=== PATIENT | male | born 1995 | race Caucasian/White ===

== ENCOUNTER 2018-06-17 23:59 | Emergency (ER) | payer SELFPAY ==
[~2018-06-17] VITALS: Ht 188 cm; Wt 108.9 kg
[2018-06-18 00:10] VITALS: BP 168/76
[2018-06-18] MEDS ORDERED: POLY17PO29 PO (02:11)
[2018-06-18] MEDS ORDERED: HYDR30CR61 TP (02:11)
--- NOTE | 2018-06-18 02:11 | PHYS DOC ---
Past Medical History Past Medical History: Other Additional Past Medical Histor: HEMEROIDS Past Surgical History: No Surgical History Alcohol Use: Occasionally Drug Use: None Adult General Chief Complaint Chief Complaint: HEMORRHOIDS HPI HPI Patient is a 22-year-old male who presents with complaint of hemorrhoids causing rectal pain. Patient states that hemorrhoids of been present for the last couple of days. He also indicates that he has been constipated for the last several days and unable to have a bowel movement. He states that he is getting some cramping associated with when he tries to bear down to have a bowel movement. He denies any nausea or vomiting. He also denies any fever. He states that he has not yet taken anything to try to have a bowel movement. I Review of Systems Review of Systems Constitutional: Denies fever or chills [] Respiratory: Denies cough or shortness of breath [] Cardiovascular: No additional information not addressed in HPI [] GI: Complains of abdominal cramping and constipation. Denies nausea, vomiting or diarrhea.[] Musculoskeletal: Denies back pain or joint pain [] All other systems were reviewed and found to be within normal limits, except as documented in this note. Current Medications Current Medications Current Medications Medications (Trade) Dose Ordered Sig/Trent Start Time Stop Time Status Last Admin Dose Admin Hydrocortisone (Proctosol-Hc) 1 kapil 1X ONCE 06/18/18 02:30 06/18/18 02:31 Magnesium Citrate (Citroma) 296 ml 1X ONCE 06/18/18 02:30 06/18/18 02:31 Allergies Allergies Allergies Coded Allergies Type Severity Reaction Last Updated Verified No Known Drug Allergies 12/16/15 No Physical Exam Physical Exam Constitutional: Well developed, well nourished, no acute distress, non-toxic appearance. [] HENT: Normocephalic, atraumatic, bilateral external ears normal, oropharynx moist, no oral exudates, nose normal. [] Eyes: PERRLA, EOMI, conjunctiva normal, no discharge. [] Neck: Normal range of motion, no tenderness, supple, no stridor. [] Cardiovascular:Heart rate regular rhythm [] Lungs & Thorax: Bilateral breath sounds clear to auscultation [] Abdomen: Bowel sounds normal, soft, no tenderness. Rectal exam demonstrates external thrombosed hemorrhoid. [] Skin: Warm, dry, no erythema, no rash. [] Extremities: No tenderness, no cyanosis, no clubbing, ROM intact, no edema. [] Neurologic: Alert and oriented X 3, normal motor function, normal sensory function, no focal deficits noted. [] Current Patient Data Vital Signs Vital Signs Date Time Temp Pulse Resp B/P (MAP) Pulse Ox O2 Delivery O2 Flow Rate FiO2 06/18/18 00:10 98.2 113 20 168/76 (106) 98 Room Air 98.2 EKG EKG [] Radiology/Procedures Radiology/Procedures [] Impressions: Abdominal series demonstrates some fecal retention. Otherwise x-ray is unremarkable. Course & Med Decision Making Course & Med Decision Making Pertinent Labs and Imaging studies reviewed. (See chart for details) [] Dragon Disclaimer Dragon Disclaimer This electronic medical record was generated, in whole or in part, using a voice recognition dictation system. Departure Departure Impression: Primary Impression: Constipation Additional Impression: External hemorrhoid Disposition: HOME, SELF-CARE Condition: STABLE Referrals: NO PCP (PCP) Patient Instructions: Constipation, Adult, Hemorrhoids Scripts Hydrocortisone (ANUSOL-HC) 30 Gm Cream..g. 1 KAPIL TP BID PRN for rectal pain, #30 GM Prov: DOROTHY CERRATO Jr. DO 06/18/18 Polyethylene Glycol 3350 (MIRALAX) 17 Gm Powd.pack 1 PKT PO DAILY, #10 PKT Prov: DOROTHY CERRATO Jr. DO 06/18/18 Problem Qualifiers Primary Impression: Constipation Constipation type: unspecified constipation type Qualified Codes: K59.00 - Constipation, unspecified DOROTHY CERRATO Jr. DO Jun 18, 2018 02:11
[2018-06-18] MEDS ORDERED: HYDROCORTISONE 2.5% RECTAL CREAM 30GM TUBE. RC ONE (02:30)
[2018-06-18] MEDS ORDERED: MAGNESIUM CITRATE 296 ML SOLUTION. PO ONE (02:30)
--- NOTE | 2018-06-18 07:49 | RAD ---
Examination: ABDOMEN SUPINE UPRIGHT History: constipation Comparison/Correlation: None Findings: Supine and upright views of the abdomen were obtained. Visualized lung bases are clear. Moderate quantity of stool in the proximal colon is present. No suspicious abdominal calcification. No extraluminal gas. Bony structures are intact. Impression: No obstruction. Electronically signed by: Miguel Angel Harvey MD (06/18/2018 7:45 AM) [facility]
== END 2018-06-18 02:20 | disposition home or self-care (01) ==
LOC: ER 23:59
DX: K64.5 Perianal venous thrombosis (principal); K59.00 Constipation, unspecified
CPT/HCPCS: 74021; 99284

== ENCOUNTER 2019-10-10 09:33 | Emergency (ER) | payer SELFPAY ==
[~2019-10-10] VITALS: Ht 188 cm; Wt 103.4 kg
[~2019-10-10 09:33] MED LIST: HYDR30CR61 TP; POLY17PO29 PO
[2019-10-10 10:05] VITALS: BP 149/82
--- NOTE | 2019-10-10 10:17 | RAD ---
Study: SHOULDER 2+V LEFT Indication: Left shoulder pain. Trauma. Comparison: None. Findings: No fracture or traumatic malalignment. Small focus of mineralization projecting just above the distal clavicle appears chronic. Mild soft tissue prominence at the superior aspect of the AC joint. What is seen of the chest is unremarkable. Impression: . 1. No acute fracture or traumatic malalignment. 2. Soft tissue prominence at the superior margin of the AC joint. This could be degenerative though correlate for localized tenderness to suggest AC joint sprain. Electronically signed by: CLYDE HALL MD (10/10/2019 10:14 AM) [id number]
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
--- NOTE | 2019-10-10 11:24 | RAD ---
Exam performed: CT left ankle without contrast. HISTORY: Injury. DATE OF SERVICE: 10/10/2019 COMPARISON: X-ray left ankle from earlier today. TECHNIQUE: Contiguous helical acquisitions are obtained through the right ankle without IV contrast. Sagittal and coronal reformatted images are obtained and reviewed. FINDINGS: Chronic avulsion fracture seen anterior aspect of the talus bone. The ankle joint as well as the small joints of the foot are normally visualized. No acute fracture or dislocation is seen. No soft tissue foreign body is identified. IMPRESSION: No acute fractures seen in the CT scan of the ankle. PQRS Compliance Statement: One or more of the following individualized dose reduction techniques were utilized for this examination: 1. Automated exposure control 2. Adjustment of the mA and/or kV according to patient size 3. Use of iterative reconstruction technique Electronically signed by: Anay Kwan MD (10/10/2019 11:21 AM) [id number]
[2019-10-10] MEDS ORDERED: NAPR-683 PO (11:31)
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
== END 2019-10-10 12:04 | disposition home or self-care (01) ==
LOC: ER 09:33
DX: S46.912A Strain of unspecified muscle, fascia and tendon at shoulder and upper arm level, left arm, initial encounter (principal); G89.29 Other chronic pain; M79.675 Pain in left toe(s); M79.672 Pain in left foot; F17.200 Nicotine dependence, unspecified, uncomplicated; V29.9XXA Motorcycle rider (driver) (passenger) injured in unspecified traffic accident, initial encounter; Y93.89 Activity, other specified; Y92.413 State road as the place of occurrence of the external cause; Y99.8 Other external cause status
CPT/HCPCS: 73030; 73630; 73700; 99284

== ENCOUNTER 2019-10-24 20:31 | Emergency (ER) | payer SELFPAY ==
[~2019-10-24] VITALS: Ht 190.5 cm; Wt 92.0 kg
[~2019-10-24 20:31] MED LIST changes: +NAPR-683 PO
--- NOTE | 2019-10-24 21:22 | PHYS DOC ---
Past Medical History Past Medical History: Asthma, Other Additional Past Medical Histor: HEMEROIDS (KEELY CARLOS APRN) Past Surgical History: No Surgical History (KEELY CARLOS APRN) Smoking Status: Current Every Day Smoker Alcohol Use: Occasionally Drug Use: None (KEELY CARLOS APRN) Attending Signature I have participated in the care of this patient and I have reviewed and agree with all pertinent clinical information above including history, exam, and recommendations. (ATIF CAMACHO MD) Adult General Chief Complaint Chief Complaint: SORE THROAT HPI HPI Patient is a 24 year old male who presents with with cough and shortness of breath along with a sore throat that started this morning. Denies fever or any other symptoms. Denies any sick contacts. Complete ROS were reviewed and found to be within normal limits, except as documented in the HPI (KEELY CARLOS APRN) Allergies Allergies Allergies Coded Allergies Type Severity Reaction Last Updated Verified No Known Drug Allergies 12/16/15 No (ATIF CAMACHO MD) Physical Exam Physical Exam Constitutional: Well developed, well nourished, no acute distress, non-toxic appearance. [] HENT: Normocephalic, atraumatic, bilateral external ears normal, oropharynx moist, erythema but no oral exudates, nose normal. [] Cardiovascular:Heart rate regular rhythm, no murmur [] Lungs & Thorax: Bilateral breath sounds clear to auscultation [] Skin: Warm, dry, no erythema, no rash. [] Neurologic: Alert and oriented X 3, normal motor function, normal sensory function, no focal deficits noted. [] Psychologic: Affect normal, judgement normal, mood normal. [] (EKELY CARLOS APRN) Current Patient Data Vital Signs Vital Signs Date Time Temp Pulse Resp B/P (MAP) Pulse Ox O2 Delivery O2 Flow Rate FiO2 10/24/19 22:30 82 17 149/82 (104) 99 Room Air 10/24/19 20:40 97.7 97.7 (ATIF CAMACHO MD) EKG EKG [] (KEELY CARLOS APRN) Radiology/Procedures Radiology/Procedures [][facility] [address] [place], [place] [id number] IMAGING REPORT Signed PATIENT: ELY PATTERSON ACCOUNT: [id number] : 1995 LOCATION: ER AGE: 24 SEX: M EXAM STATUS: REG ER ORD. PHYSICIAN: KEELY CARLOS APRN REASON: cough, shortness of breath PROCEDURE: PORTABLE CHEST 1V Exam: Chest one view INDICATION: Cough, shortness of breath TECHNIQUE: Frontal view of the chest Comparisons: None FINDINGS: The cardiomediastinal silhouette and pulmonary vessels are within normal limits. The lung and pleural spaces are clear. IMPRESSION: No acute cardiopulmonary process. Electronically signed by: Edy Sadler MD (10/24/2019 9:47 PM) [id number] DICTATED and SIGNED BY: EDY SADLER MD DATE: 10/24/192146 (KEELY CARLOS APRN) Course & Med Decision Making Course & Med Decision Making Pertinent Labs and Imaging studies reviewed. (See chart for details) We will get a strep test and chest x-ray. Discussed with the patient that he has chronic viral symptoms and thus he should self isolate for 14 days. This should include anybody that has been in contact with him especially those that live with him. Strep -, Chest x-ray unremarkable. (KEELY CARLOS APRN) Dragon Disclaimer Dragon Disclaimer This electronic medical record was generated, in whole or in part, using a voice recognition dictation system. (KEELY CARLOS APRN) Departure Departure Impression: Primary Impression: Suspected 2019 novel coronavirus infection Additional Impressions: Cough Shortness of breath Sore throat Disposition: HOME, SELF-CARE Condition: STABLE Referrals: NO PCP (PCP) Patient Instructions: Viral Syndrome Additional Instructions: Thank you for visiting . We appreciate you trusting us with your care. If any additional problems come up don't hesitate to return to visit us. Please follow up with your primary care provider so they can plan additional care if needed and know about the problem that you had. If symptoms worsen come back to the Emergency Department. Any concerning symptoms that start such as chest pain, shortness of air, weakness or numbness on one side of the body, running high fevers or any other concerning symptoms return to the ER. You have a viral syndrome which may include symptoms like muscle aches, fevers, chills, runny nose, cough, sneezing, sore throat, vomiting, or diarrhea. One of the potential viruses that you may have is SARS-CoV-2, the virus that causes COVID-19, also known as the Coronavirus. You are just as likely to have a different viral infection such as the common cold, flu, etc. Most patients with the Coronavirus have mild symptoms and recover on their own. Resting, staying hydrated, and sleep from known cases can be helpful. As of todays visit, you are well enough to go home and treat your symptoms with oral fluids and over the counter medications. Coronavirus testing is not performed on most people with mild symptoms who are being discharged from the emergency department. If Coronavirus testing was performed the results will not be available for possibly up to 2-3 days. If your result is positive you will be contacted. Please follow the following precautions at home: 1) Stay home except to get medical care. 2) As advised by the CDC we recommend you stay in your home and minimize contact with other people. We do not want you to spread the infection. 3) Those who are older or have significant medical issues may have more severe symptoms from this infection. We recommend self-isolation,FOR AT LEAST 7 DAYS after your 1st day of symptoms. AFTER you feel better please wait AT LEAST ANOTHER WEEK before returning to regular activities and being around other people! 4) IF you become sicker and have difficulty breathing, chest pain, unable to eat/drink, severe vomiting, diarrhea, or weakness you may need to return to the Emergency Department. 5) You should restrict activities outside your home, except for getting medical care. DO NOT go to work, school, or public areas. Avoid using public transportation, ride sharing, or taxis. 6) Separate yourself from other people in your home. You should use a separate bathroom if possible. 7) Avoid sharing personal household items such as dishes, cups, eating utensils, towels, etc. 8) Clean all high touch surfaces every day (door knobs, counter tops, etc). Use a household cleaning spray or wipe per label instructions. 9) Clean your hands often. Wash your hands with soap and water for at least 20 seconds. 10) Cover your mouth and nose with a tissue when you cough or sneeze. 11) Throw used tissues in a trash can and immediately wash your hands. For additional resources please visit the CDC website or the [facility] ([phone]). Problem Qualifiers KEELY CARLOS APRN Oct 24, 2019 21:22 ATIF CAMACHO MD Oct 25, 2019 01:31
--- NOTE | 2019-10-24 21:49 | RAD ---
Exam: Chest one view INDICATION: Cough, shortness of breath TECHNIQUE: Frontal view of the chest Comparisons: None FINDINGS: The cardiomediastinal silhouette and pulmonary vessels are within normal limits. The lung and pleural spaces are clear. IMPRESSION: No acute cardiopulmonary process. Electronically signed by: Edy Cortés MD (10/24/2019 9:47 PM) [id number]
[2019-10-24 22:30] VITALS: BP 149/82
== END 2019-10-24 22:40 | disposition home or self-care (01) ==
LOC: EDBD → ER 20:31
DX: J02.9 Acute pharyngitis, unspecified (principal); R06.02 Shortness of breath; R05 Cough; J45.909 Unspecified asthma, uncomplicated; F17.200 Nicotine dependence, unspecified, uncomplicated
CPT/HCPCS: 71045; 87070; 87880; 99284